=== PATIENT | female | born 1945 | race Caucasian/White ===

== ENCOUNTER → 2019-06-18 08:03 | Outpatient (BNVA) | payer MEDICARE, OTHER, SELFPAY | PROVIDERS: PCP Family Medicine; Visit Provider Specialist | DX: G30.9 Alzheimer's disease, unspecified (principal); F02.80 Dementia in other diseases classified elsewhere, unspecified severity, without behavioral disturbance, psychotic disturbance, mood disturbance, and anxiety | CPT/HCPCS: 96116; 99213 ==

== ENCOUNTER → 2019-12-17 08:01 | Outpatient (BNVA) | payer MEDICARE, OTHER, SELFPAY | PROVIDERS: PCP Family Medicine; Visit Provider Specialist | DX: G30.9 Alzheimer's disease, unspecified (principal); F02.80 Dementia in other diseases classified elsewhere, unspecified severity, without behavioral disturbance, psychotic disturbance, mood disturbance, and anxiety | CPT/HCPCS: 99212 ==

== ENCOUNTER 2020-08-20 10:25 | Observation (INO) | payer MEDICARE, OTHER, SELFPAY ==
[2020-08-20] VITALS (15 sets, daily range): BP systolic 123–181; BP diastolic 60–95; PULSE 58–85; RESP 15–22; TEMP 36.4–37.6; O2SAT 95–100; BMI 20.3
--- NOTE | 2020-08-20 10:29 | XR_ITS ---
WS: [id number] Portable AP upright chest, 08/20/2020 Clinical Data: syncope Comparison: None. Findings: No nodules, masses or effusions are seen. The heart is normal. The pulmonary vascularity is not increased. No pneumonia or pneumothorax is seen. The aortic arch and descending aorta are tortuo us. There are monitor leads on the chest wall. XR/XR chest 1V portable [id number] Impression: Atherosclerosis.
--- NOTE | 2020-08-20 10:29 | ECG_ITS ---
[facility] Test Date: 2020-08-20 Pat Name: Dionna Leon Department: Room: Gender: Female Crosscutter: : 1945 Requested By: aRn Ponce Order Number: [id number] Carlita MD: Rajinder Houston M.D. Measurements Intervals [place] Rate: 63 P: 77 [place]: 245 QRS: 54 QRSD: 105 T: 63 QT: 457 QTc: 469 Interpretive Statements SINUS RHYTHM WITH FIRST DEGREE AV BLOCK POSSIBLE LEFT ATRIAL ENLARGEMENT [-0.1mV P WAVE IN V1/V2] ANTEROSEPTAL MYOCARDIAL INFARCTION , OF INDETERMINATE AGE [40+ ms Q WAVE IN V1-V4] No previous ECG available for comparison Electronically Signed On 08-20-2020 17:13:45 PLANNING INTERN by Rajinder Houston M.D. [email or web address] NetworkInsception Biosciencessouthview medical center.[employer]/store/OM/[id number]
--- NOTE | 2020-08-20 10:30 | W.ED.SYNCOPE ---
HPI - Syncope General: Chief Complaint: Syncope Stated Complaint: SYNCOPAL EPISODE Time Seen by Provider: 08/20/20 10:26 History of Present Illness: HPI narrative: Patient is a 75-year-old female with past medical history dementia who comes to the ER after an episode of syncope. She was with her family eating breakfast and was walking and passed out falling forward. They said her eyes were open and she was out for approximately 3 minutes then she became responsive again. Denies any shaking while she was down or muscle stiffening. In the ED Dionna has no complaints MD complaint: loss of consciousness Injuries sustained associated with event: none Associated symptoms: Reports no associated symptoms; Deny abdominal pain, chest pain or headache(s) Review of Systems General: Reports: 10 or more systems reviewed and unremarkable except in HPI and below Const: Denies: fatigue Eyes: Denies: change in vision, blurry vision or eye redness ENMT: Denies: throat pain, swelling of lips/tongue, ear or mastoid pain or nasal congestion Card: Denies: chest pain, palpitations, irregular heart rhythm, edema, dyspnea on exertion or orthopnea Resp: Denies: dyspnea, productive cough or non-productive cough GI: Denies: abdominal pain, diarrhea or GI cramping : Denies: flank pain, difficulty voiding, urinary frequency or urinary urgency Musc: Denies: neck pain, back pain, extremity pain, joint pain, joint redness, limited range of motion or muscle weakness Skin/Breast: Denies: rash, pruritus, erythema, skin pain or skin tenderness Neuro: Denies: headache(s), numbness in extremities, weakness in extremities, sensory changes, difficulty walking, dizziness, confusion or Slurred speech present Psych: Denies: anxiety or depression Endo: Denies: polyuria All/Imm: Denies: urticaria, throat swelling or tongue swelling PFSH ED PFSH: Family History Sister Hypertension Social History Smoking and tobacco status: never smoked Alcohol intake: never Physical Exam Const: COMMON NORMALS: no acute distress, average body habitus, patient oriented x3, no limitations, healthy appearing, alert and well nourished GENERAL APPEARANCE: cooperative, comfortable, well kempt and well developed ORIENTATION/CONSCIOUSNESS: Yes awake, Yes oriented to person, Yes oriented to place and Yes oriented to time HENMT: COMMON NORMALS: normocephalic, external ears normal and Normal external nose present HEAD & SCALP: normal to inspection and normocephalic NOSE: Normal external nose present EXTERNAL EAR: Yes external ears normal MOUTH: Normal oral and palatal mucosa present THROAT: posterior oropharynx normal Eye: COMMON NORMALS: Equal, round and reactive pupils present and EOMs intact bilaterally GENERAL EYE: appearance normal, both eyes and all related structures PUPIL: Yes Equal, round and reactive pupils present Neck/C-Spine: COMMON NORMALS: full ROM, no lymphadenopathy, no meningeal signs and no JVD GENERAL: Yes normal visual inspection Lymph: LYMPHATIC: no lymphadenopathy noted Chest: COMMONS NORMALS: normal inspection of the chest and normal palpation of entire chest wall Resp: COMMON NORMALS: normal respiratory effort, No retractions, No use of accessory muscles, clear to auscultation bilaterally and percussion normal EFFORT & INSPECTION: Yes able to speak in complete sentences AUSCULTATION: clear to auscultation bilaterally PERCUSSION: percussion normal Cardio: COMMON NORMALS: no JVD, regular rate, regular rhythm, S1 normal heart sound present, S2 normal heart sound present and Peripheral pulses 2+ throughout RATE: regular rate RHYTHM: regular rhythm HEART SOUNDS: S1 normal heart sound present and S2 normal heart sound present PERIPHERAL PULSES: Peripheral pulses 2+ throughout GI: COMMON NORMALS: Normal to inspection, nondistended, normoactive bowel sounds present, Soft to palpation, non-tender and no masses INSPECTION: Yes normal to inspection PALPATION: Yes Soft to palpation : COMMON NORMALS: Yes no CVA tenderness BLADDER/KIDNEY EXAM: Yes no CVA tenderness Back/Pelvis: COMMON NORMALS: no CVA tenderness, thoracic and lumbar spine normal to inspection, no thoracic nor lumbar tenderness and thoraco-lumbar ROM normal Extremity: COMMON NORMALS: normal to inspection, full ROM, capillary refill normal, no joint enlargement and no pedal edema GENERAL: Yes normal exam except as noted Neuro: COMMON NORMALS: patient oriented x3, CN's II-XII intact bilaterally, moves all extremities, no focal motor deficits, no sensory deficits noted and gait normal SENSORIUM/ORIENTATION: Yes alert, Yes oriented to person, Yes oriented to place and Yes oriented to time MENINGEAL SIGNS: Yes no meningeal signs Psych: COMMON NORMALS: mental status grossly normal, Normal thought process present, cooperative, normal affect and speech normal APPEARANCE: Yes well kempt ATTITUDE: Yes calm SPEECH: Yes normal speech THOUGHT PROCESS: Normal thought process present Skin: COMMON NORMALS: no rashes or lesions noted GENERAL SKIN EXAM: no rashes or lesions noted Course Vital Signs: Vital signs: Vital Signs Temperature 97.6 F 08/20/20 10:40 Pulse Rate 72 08/20/20 13:29 Respiratory Rate 19 H 08/20/20 11:46 Blood Pressure 163/82 08/20/20 13:29 Pulse Oximetry 98 08/20/20 13:29 MDM - Syncope MDM Narrative: Medical decision making narrative: The patient came in for an episode of syncope where she was out for 3 minutes. EMS noted V. tach and PVCs during transport but were unable to record these. On arrival she did have PVCs and was feeling much better. She was given IV fluids and monitored as well as imaging and lab studies. They were all normal. Discussed with Dr. Dean who recommended observing overnight to monitor her heart rhythm. Dr. Roberson accepts for observation to U Lab Data: Labs: Lab Results 08/20/20 08/20/20 08/20/20 Range/Units 10:57 10:57 10:57 WBC 6.6 (4.0-10.0) 10^3/ uL RBC 4.44 (4.1-5.3) 10^6/u L Hgb 13.5 (11.5-15.3) g/dL Hct 41.1 (37.0-47.0) % MCV 92.6 (81-99) fL MCH 30.4 (28.0-34.0) pg MCHC 32.8 (30.0-36.0) g/dL RDW 12.1 (12.1-15.1) % Plt Count 317 (130-400) 10^3/c mm MPV 9.1 (7.4-10.4) fL Neut % (Auto) 76.2 % Lymph % (Auto) 14.6 % [place] % (Auto) 7.2 % Eos % (Auto) 0.9 % Baso % (Auto) 0.6 % Neut # (Auto) 5.00 (1.8-7.7) 10^3/u L Lymph # (Auto) 1.0 (0.8-4.8) 10^3/u L [place] # (Auto) 0.5 (0.2-0.9) 10^3/u L Eos # (Auto) 0.1 (0.0-0.8) 10^3/u L Baso # (Auto) 0.0 (0.0-0.1) 10^3/u L Nucleated RBC % (a uto) 0 % Nucleated RBCs # 0.0 /100WBC D-Dimer <= 0.27 (0-0.59) ug/mIFE U Sodium 137 (136-145) mmol/L Potassium 3.5 (3.5-5.1) mmol/L Chloride 100 (98-107) mmol/L Carbon Dioxide 26 (22-29) mmol/L Anion Gap 14.5 (5-19) BUN 8 (8-23) mg/dL Creatinine 0.8 (0.5-0.9) mg/dL GFR Calculation Not Reportable Glucose 97 (65-115) mg/dL Calculated Osmolal ity 282 L (285-295) mOsm/k g Calcium 9.5 (8.5-10.5) mg/dL Total Bilirubin 1.4 H (0.15-1.2) mg/dL AST 20 (0-32) U/L ALT 12 (0-33) U/L Alkaline Phosphata se 45 (35-105) IU/L Troponin T Baselin e (0-10) ng/L Troponin T 120 Min [place] (0-10) ng/L Delta Troponin T (0-10) ABS# NT-Pro-B Natriuret Pep 174 H (0-125) pg/mL Total Protein 6.5 L (6.6-8.7) g/dL Albumin 4.4 (3.5-5.2) g/dL Globulin 2.1 (1.3-4.6) g/dL Urine Color (Yellow) Urine Appearance (CLEAR) Urine pH (5-7) Ur Specific Gravit y (1.005-1.030) Urine Protein (Negative) Urine Glucose (UA) (Normal) Urine Ketones (Negative) Urine Blood (Negative) Urine Nitrate (Negative) Urine Bilirubin (Negative) Prot Sulfosalicyli c Acd (Negative) Urine Urobilinogen (Negative) mg/dL Ur Leukocyte Liza ase (Negative) 08/20/20 08/20/20 08/20/20 Range/Units 10:57 11:44 12:50 WBC (4.0-10.0) 10^3/ uL RBC (4.1-5.3) 10^6/u L Hgb (11.5-15.3) g/dL Hct (37.0-47.0) % MCV (81-99) fL MCH (28.0-34.0) pg MCHC (30.0-36.0) g/dL RDW (12.1-15.1) % Plt Count (130-400) 10^3/c mm MPV (7.4-10.4) fL Neut % (Auto) % Lymph % (Auto) % [place] % (Auto) % Eos % (Auto) % Baso % (Auto) % Neut # (Auto) (1.8-7.7) 10^3/u L Lymph # (Auto) (0.8-4.8) 10^3/u L [place] # (Auto) (0.2-0.9) 10^3/u L Eos # (Auto) (0.0-0.8) 10^3/u L Baso # (Auto) (0.0-0.1) 10^3/u L Nucleated RBC % (a uto) % Nucleated RBCs # /100WBC D-Dimer (0-0.59) ug/mIFE U Sodium (136-145) mmol/L Potassium (3.5-5.1) mmol/L Chloride (98-107) mmol/L Carbon Dioxide (22-29) mmol/L Anion Gap (5-19) BUN (8-23) mg/dL Creatinine (0.5-0.9) mg/dL GFR Calculation Glucose (65-115) mg/dL Calculated Osmolal ity (285-295) mOsm/k g Calcium (8.5-10.5) mg/dL Total Bilirubin (0.15-1.2) mg/dL AST (0-32) U/L ALT (0-33) U/L Alkaline Phosphata se (35-105) IU/L Troponin T Baselin e 8 (0-10) ng/L Troponin T 120 Min [place] 6.00 (0-10) ng/L Delta Troponin T -2.00 L (0-10) ABS# NT-Pro-B Natriuret Pep (0-125) pg/mL Total Protein (6.6-8.7) g/dL Albumin (3.5-5.2) g/dL Globulin (1.3-4.6) g/dL Urine Color Yellow (Yellow) Urine Appearance Clear (CLEAR) Urine pH 8 H (5-7) Ur Specific Gravit y 1.020 (1.005-1.030) Urine Protein Neg (Negative) Urine Glucose (UA) Norm (Normal) Urine Ketones Negative (Negative) Urine Blood Neg (Negative) Urine Nitrate Negative (Negative) Urine Bilirubin Neg (Negative) Prot Sulfosalicyli c Acd Negative (Negative) Urine Urobilinogen Norm (Negative) mg/dL Ur Leukocyte Liza ase Negative (Negative) Discharge Plan Discharge Patient Disposition: Placed in Observation Clinical Impression: Syncope Coding Level of Care Code ED Pharmacy Technician for Vu Fwd Exam Comprehensive
[2020-08-20] MEDS: sodium chloride 0.9% 1,000 ML 999 ML IV (10:56)
[2020-08-20 11:10] LABS: Basophils % 0.6 %; Eosinophils # 0.1 10^3/uL (0.0-0.8); Eosinophils % 0.9 %; Hematocrit 41.1 % (37.0-47.0); Hemoglobin 13.5 g/dL (11.5-15.3); Lymphocytes % 14.6 %; Mean Corpuscular HGB Conc 32.8 g/dL (30.0-36.0); Mean Corpuscular Hemoglobin 30.4 pg (28.0-34.0); Mean Corpuscular Volume 92.6 fL (81-99); Mean Platelet Volume 9.1 fL (7.4-10.4); Monocytes # 0.5 10^3/uL (0.2-0.9); Monocytes % 7.2 %; Neutrophils % 76.2 %; Nucleated Red Blood Cells % 0 %; Platelet Count 317 10^3/cmm (130-400); Red Blood Count 4.44 10^6/uL (4.1-5.3); Red Cell Distribution Width 12.1 % (12.1-15.1); White Blood Count 6.6 10^3/uL (4.0-10.0)
--- NOTE | 2020-08-20 11:17 | CT_ITS ---
WS: [id number] CT HEAD TECHNIQUE: Noncontrast CT of the head obtained from the skullbase to the vertex. CLINICAL INFORMATION: syncope COMPARISON: MRI June 2017 DLP: 771.[address] scans at [facility] use at least one of these dose optimization techniques: automat ed exposure control; mA and/or kV adjustment per patient size (includes targeted exams where dose is matched to clinical indication); or iterative reconstruction. FINDINGS: No evidence of intracranial hemorrhage or mass effect. Ventricular system and basal cisterns are carroll nt. Mild small vessel changes with moderate parenchymal volume loss. No extra-axial fluid collections . No evidence of mass or mass effect. Normal peoples-white differentiation. Paranasal sinuses and mastoid air cells are well aerated. .Normal visualized soft tissues. CT/CT head wo con* [id number] IMPRESSION: 1. No evidence of intracranial hemorrhage or mass effect. 2. Mild small vessel changes. Moderate parenchymal volume loss. 3. No acute intracranial findings.
--- NOTE | 2020-08-20 11:17 | CT_ITS ---
WS: [id number] CT CERVICAL TRAUMA TECHNIQUE: Noncontrast CT of the cervical spine with coronal and sagittal reformatted images. CLINICAL INFORMATION: fall COMPARISON: None. DLP: 288.[address] scans at [facility] use at least one of these dose optimization techniques: automat ed exposure control; mA and/or kV adjustment per patient size (includes targeted exams where dose is matched to clinical indication); or iterative reconstruction. FINDINGS: Straightening of the normal cervical lordosis. Moderate spondylitic changes. Slight anterolisthesis C 4 on C5. Disc space narrowing with disc osteophyte complexes at C5-C6 and C6-C7. Normal craniocervica l junction. Normal C1-C2 articulation. Dens is normal in appearance. Normal occipital condyles. No hi gh-grade spinal canal narrowing. Normal C1 ring. No evidence of acute fracture or dislocation. Normal prevertebral soft tissues. Multinodular thyroid. Mastoids air cells are well aerated. CT/CT cervical spin wo con* 13622 IMPRESSION: 1. No acute cervical spine findings. 2. Multinodular thyroid.
[2020-08-20 11:21] LABS: D Dimer <= 0.27 ug/mIFEU (0-0.59)
[2020-08-20 11:31] LABS: Troponin(5th) Baseline 8 ng/L (0-10)
[2020-08-20 11:35] LABS: Alanine Aminotransferase 12 U/L (0-33); Albumin Level 4.4 g/dL (3.5-5.2); Alkaline Phosphatase 45 IU/L (35-105); Anion Gap 14.5 (5-19); Aspartate Amino Transferase 20 U/L (0-32); Blood Urea Nitrogen 8 mg/dL (8-23); Calcium 9.5 mg/dL (8.5-10.5); Carbon Dioxide 26 mmol/L (22-29); Chloride 100 mmol/L (98-107); Globulin 2.1 g/dL (1.3-4.6); Glucose 97 mg/dL (65-115); NT Pro B Type Natriuretic Pept 174 pg/mL (0-125); Osmolality Calculated 282 mOsm/kg (285-295); Potassium 3.5 mmol/L (3.5-5.1); Sodium 137 mmol/L (136-145); Total Bilirubin 1.4 mg/dL (0.15-1.2); Total Protein 6.5 g/dL (6.6-8.7)
[2020-08-20 11:51] LABS: Add Urine Microscopic? NO
[2020-08-20 11:58] LABS: Bilirubin Urine Neg (Negative); Blood Urine Neg (Negative); Glucose Urine UA Norm (Normal); Ketones Urine Negative (Negative); Leukocyte Esterase Urine Negative (Negative); Nitrate Urine Negative (Negative); Protein Urine Neg (Negative); Sulfosalicylic Acid Urine Negative (Negative); Urine Appearance Clear (CLEAR); Urine Color Yellow (Yellow); Urobilinogen Urine Norm (Negative); pH Urine 8 (5-7)
--- NOTE | 2020-08-20 12:29 | ECG_ITS ---
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 Measurements Intervals [place] Rate: 60 P: 76 [place]: 239 QRS: 64 QRSD: 100 T: 102 QT: 434 QTc: 437 Interpretive Statements SINUS RHYTHM WITH FIRST DEGREE AV BLOCK POSSIBLE LEFT ATRIAL ENLARGEMENT [-0.1mV P WAVE IN V1/V2] ANTEROLATERAL MYOCARDIAL INFARCTION , OF INDETERMINATE AGE [40+ ms Q WAVE IN I/aVL/V3-V6] Compared to ECG 08/20/2020 11:05:53 No significant changes Electronically Signed On 08-20-2020 17:20:25 PACKING INSPECTOR by Rajinder Houston M.D. [email or web address].[employer]/store/OM/[id number]
--- NOTE | 2020-08-20 14:51 | PM.HP ---
Providers/Chief Complaint Admitting Physician: Dnaiel Roberson MD Primary Care Provider: Diane Beaulieu MD Chief Complaint: SYNCOPAL EPISODE History of Present Illness Dionna Leon is a 75 year old female who presents after episode of syncope. This has never happened to her before. She reports she was sitting eating breakfast with her when she told her that she is not feeling well and shortly after slumped forward and her eyes rolled back. Patient reports heart raced a bit faster right before syncopal episode, but denies any preceding headaches or chest pain. She just took several bites of her grilled cheese sandwich before syncopal episode. She was out for 3-4 min and recognized her surroundings when she came back. She was awake when loaded onto ambulance. No fecal or urinary incontinence. I also would like to mention that for the 3-4 minutes she was out she remained in sitting position. Patient's daughter reports that patient's blood pressure is usually 120/90 at home, but measured 180/90 in ER. Apparently in route EMS crew reported frequent PVCs but no strips were available or recorded as per Dr. Garcia. Discussed with patient's and obtained most of the information. Review of Systems General: Reports: 10 or more systems reviewed and unremarkable except in HPI and below Const: Denies: fever(s), chills or body aches Eyes: Denies: change in vision ENMT: Denies: odynophagia Card: Denies: chest pain, swelling of feet/ankles, dyspnea on exertion or orthopnea Resp: Denies: dyspnea GI: Denies: abdominal pain, diarrhea, constipation, change in bowel habits or pain on defecation : Denies: difficulty voiding or dysuria Musc: Denies: muscle weakness Skin/Breast: Denies: rash or pruritus Neuro: Denies: headache(s), numbness in extremities or weakness in extremities Psych: Reports: memory loss and difficulty concentrating; Denies: anxiety or depression Endo: Denies: polyuria or tired all the time Jose/Lymph: Denies: easy bruising or easy bleeding All/Imm: Denies: tongue swelling Medications/Allergies Home Medications Medication Instructions Recorded Confirmed Last Taken Type Aricept 10 mg PO DAILY@06 08/20/20 08/20/20 08/20/20 History Allergies Allergy/AdvReac Type Severity Reaction Status Date / Time Anesthetics - Amide Type - Allergy Unknown Unknown Verified 08/20/20 11:24 Select A PFSH Acute PFSH: Medical History (Updated 08/20/20 @ 16:24 by Daniel Roberson MD) Alzheimer disease Hypothyroid Surgical History History of cataract surgery History of hand surgery Family History Sister Hypertension Father Heart attack Mother Dementia Social History Smoking and tobacco status: never smoked Alcohol intake: never Vitals/I&O/Wt Last Vital Signs Temp 97.6 F 08/20/20 10:40 Pulse 66 08/20/20 14:23 Resp 15 08/20/20 14:23 BP 181/91 08/20/20 14:23 Pulse Ox 100 08/20/20 14:23 08/19/20 08/20/20 08/20/20 22:59 06:59 14:59 Intake Total 1000 / 1000 Balance 1000 / 1000 Weight last 48 hrs Weight 58.967 kg Physical Exam Const: COMMON NORMALS: no acute distress, patient oriented x3 and alert HENMT: COMMON NORMALS: normocephalic and atraumatic HEAD & SCALP: normocephalic and atraumatic Eye: COMMON NORMALS: EOMs intact bilaterally, conjunctivae normal and no scleral icterus CONJUNCTIVA: Yes conjunctivae normal Neck/C-Spine: COMMON NORMALS: no lymphadenopathy and no meningeal signs Lymph: LYMPHATIC: no lymphadenopathy noted Chest: COMMONS NORMALS: normal palpation of entire chest wall Resp: COMMON NORMALS: No use of accessory muscles and clear to auscultation bilaterally AUSCULTATION: clear to auscultation bilaterally Cardio: COMMON NORMALS: regular rate, regular rhythm and No murmurs present (Cardio) RATE: regular rate RHYTHM: regular rhythm OTHER: No lower extremity edema GI: COMMON NORMALS: Soft to palpation and non-tender PALPATION: Yes Soft to palpation RECTAL EXAM: deferred : COMMON NORMALS: Yes no CVA tenderness BLADDER/KIDNEY EXAM: Yes no CVA tenderness Back/Pelvis: COMMON NORMALS: no CVA tenderness and thoracic and lumbar spine normal to inspection Extremity: COMMON NORMALS: normal to inspection and capillary refill normal Neuro: COMMON NORMALS: patient oriented x3 and no focal motor deficits SENSORIUM/ORIENTATION: Yes alert MENINGEAL SIGNS: Yes no meningeal signs Psych: COMMON NORMALS: mental status grossly normal and cooperative APPEARANCE: Yes well kempt SPEECH: Yes normal speech MOOD & AFFECT: Yes euthymic mood THOUGHT PROCESS: Tangential thought process present ATTENTION/CONCENTRATION: Yes attention grossly intact MEMORY/COGNITION: Yes memory grossly impaired Impared memory type(s): short term INSIGHT: Poor insight present (Psych) JUDGEMENT: Poor judgement present (Psych) Skin: COMMON NORMALS: no rashes or lesions noted Data : 08/20/20 10:57 08/20/20 10:57 A&P Assessment and plan (1) Syncope: Cardiac versus orthostatic versus vasovagal. Status: Acute (2) Hypertension: Status: Acute Additional A&P Information PLAN: Etiology of syncope is unknown. Will request orthostatic blood pressure. Will also obtain echocardiogram to evaluate wall motion and ejection fraction. Monitor on telemetry. Start patient on low-dose lisinopril. Check TSH in a.m. Attestations Medical Necessity Statement*: Patient with syncopal episode and concern for cardiac arrhythmia requires observation for monitoring, evaluation and treatment. I expect patient will require less than two midnights. Coding Level of Care Code Acute Reconnaissance Crewmember for [employer] Diagnoses Syncope R55 Hypertension I10
--- NOTE | 2020-08-20 16:29 | ECG_ITS ---
[facility] Test Date: 2020-08-20 Pat Name: Dionna Leon Department: Room: 107 Gender: Female [employer] Hat Open Stack Administrator: : 1945 Requested By: Ran Ponce Order Number: [id number] Carlita MD: Rajinder Houston M.D. Measurements Intervals [place] Rate: 78 P: 75 [place]: 229 QRS: -76 QRSD: 141 T: 90 QT: 412 QTc: 472 Interpretive Statements SINUS RHYTHM WITH FIRST DEGREE AV BLOCK WITH OCCASIONAL SUPRAVENTRICULAR PREMATURE COMPLEXES MARKED LEFT AXIS DEVIATION [QRS AXIS < -30] LEFT BUNDLE BRANCH BLOCK [120+ ms QRS DURATION, 80+ ms Q/S IN V1/V2, 85+ ms R IN I/aVL/V5/V6] Compared to ECG 08/20/2020 12:26:18 Left-axis deviation now present Left bundle-branch block now present Myocardial infarct finding no longer present Electronically Signed On 08-20-2020 17:17:50 CERTIFICATION TECHNICIAN by Rajinder Houston M.D. [email or web address]/store/[id number]
[2020-08-20 17:29] LABS: Troponin 5 6HR 6.54 ng/L (0-10)
[2020-08-20 17:34] LABS: Troponin 5 6HR Delta -1.46 ng/L (0-12)
[2020-08-20 20:11] LABS: Add Urine Microscopic? NO
[2020-08-20 20:31] LABS: Bilirubin Urine Neg (Negative); Blood Urine Neg (Negative); Glucose Urine UA Norm (Normal); Ketones Urine Negative (Negative); Leukocyte Esterase Urine Negative (Negative); Nitrate Urine Negative (Negative); Protein Urine Neg (Negative); Specific Gravity, Urine 1.015 (1.005-1.030); Urine Appearance Clear (CLEAR); Urine Color Yellow (Yellow); Urobilinogen Urine 1 mg/dL (Negative); pH Urine 6.5 (5-7)
--- NOTE | 2020-08-20 20:38 | PC.NURSE ---
Patient is oriented to person and place. Patient has been educated not to get up without assistance. Bed alarm is set.
[2020-08-21] VITALS (7 sets, daily range): BP systolic 145–177; BP diastolic 78–87; PULSE 63–75; RESP 15–25; TEMP 36.4–36.9; O2SAT 93–94
[2020-08-21 04:34] LABS: Basophils # 0.1 10^3/uL (0.0-0.1); Basophils % 0.9 %; Eosinophils # 0.1 10^3/uL (0.0-0.8); Eosinophils % 1.5 %; Hematocrit 40.4 % (37.0-47.0); Lymphocytes # 1.2 10^3/uL (0.8-4.8); Lymphocytes % 20.7 %; Mean Corpuscular HGB Conc 32.2 g/dL (30.0-36.0); Mean Corpuscular Hemoglobin 30.3 pg (28.0-34.0); Mean Corpuscular Volume 94.2 fL (81-99); Monocytes # 0.5 10^3/uL (0.2-0.9); Monocytes % 7.7 %; Neutrophils # 4.06 10^3/uL (1.8-7.7); Nucleated Red Blood Cells % 0 %; Platelet Count 297 10^3/cmm (130-400); Red Blood Count 4.29 10^6/uL (4.1-5.3); Red Cell Distribution Width 12.3 % (12.1-15.1); White Blood Count 5.9 10^3/uL (4.0-10.0)
[2020-08-21 05:05] LABS: NT Pro B Type Natriuretic Pept 195 pg/mL (0-125); Procalcitonin 0.04 ng/mL (0-0.5)
[2020-08-21 05:07] LABS: Alanine Aminotransferase 10 U/L (0-33); Alkaline Phosphatase 41 IU/L (35-105); Anion Gap 12.7 (5-19); Aspartate Amino Transferase 18 U/L (0-32); Blood Urea Nitrogen 11 mg/dL (8-23); Calcium 9.1 mg/dL (8.5-10.5); Carbon Dioxide 27 mmol/L (22-29); Chloride 102 mmol/L (98-107); Globulin 2.3 g/dL (1.3-4.6); Glucose 99 mg/dL (65-115); Osmolality Calculated 285 mOsm/kg (285-295); Potassium 3.7 mmol/L (3.5-5.1); Sodium 138 mmol/L (136-145); Thyroid Stimulating Hormone 6.38 uIU/mL (0.27-4.20); Total Bilirubin 1.3 mg/dL (0.15-1.2); Total Protein 6.3 g/dL (6.6-8.7)
--- NOTE | 2020-08-21 07:00 | USCV_ITS ---
Dionna Leon Age: 75 Gender: F : 1945 Exam Date: 08/21/2020 07:22 Ordering Phys: Daniel Roberson MD Technologist: Prateek Coates Exam Location: [facility] – [place] Indication: TIA BP: 146 / 87 HR: 63 Rhythm: Sinus Technical Quality: Good MEASUREMENTS (Male / Female) Normal Values 2D ECHO LV Diastolic Diameter PLAX 2.9 cm 4.2 - 5.9 / 3.9 - 5.3 cm LV Systolic Diameter PLAX 2.1 cm IVS Diastolic Thickness 1.2 cm 0.6 - 1.0 / 0.6 - 0.9 cm IVS Systolic Thickness 1.4 cm LVPW Diastolic Thickness 1.3 cm 0.6 - 1.0 / 0.6 - 0.9 cm LVPW Systolic Thickness 1.3 cm LVOT Diameter 2.0 cm LV Ejection Fraction 2D Teich 58.3 % LV Ejection Fraction MOD 2C 54.8 % LV Ejection Fraction 2C AL 57.6 % LA Diameter 2.7 cm LA Width 3.3 cm LA Height 3.5 cm RA Width 3.0 cm RA Height 3.9 cm M-MODE LV Diastolic Diameter MM 4.2 cm 4.2 - 5.9 / 3.9 - 5.3 cm LV Systolic Diameter MM 2.7 cm LV Ejection Fraction MM Teich 66.1 % IVS Diastolic Thickness MM 1.1 cm 0.6 - 1.0 / 0.6 - 0.9 cm IVS Systolic Thickness MM 1.6 cm LVPW Diastolic Thickness MM 1.5 cm 0.6 - 1.0 / 0.6 - 0.9 cm LVPW Systolic Thickness MM 1.7 cm RV Diastolic Diameter MM 1.7 cm Aortic Annulus Diameter 3.5 cm LA Ao Ratio MM 0.9 MV E Point Septal Separation 0.4 cm DOPPLER AV Peak Velocity 146.0 cm/s LVOT Peak Velocity 119.0 cm/s AV Area Cont Eq vti 2.9 cm squared AV Area Cont Eq pk 2.7 cm squared MV Area PHT 5.0 cm squared Mitral E to A Ratio 1.0 MV E' Velocity 38.0 cm/s Mitral E to MV E' Ratio 7.7 Mitral E to LV E' Lateral Ratio 9.7 Mitral E to LV E' Septal Ratio 6.4 TR Peak Velocity 144.7 cm/s TR Peak Gradient 8.4 mmHg TV Peak E Velocity 77.0 cm/s Right Atrial Pressure 3.0 mmHg Pulmonary Artery Systolic Pressu 11.4 mmHg PV Peak Velocity 104.0 cm/s FINDINGS Left Ventricle Normal left ventricular size and systolic function, EF 55 %. Mild left ventricular hypertrophy. No regional wall motion abnormalities. Right Ventricle Normal right ventricular size and systolic function. Right Atrium The right atrium is normal in size. Left Atrium The left atrium is normal in size. Mitral Valve Thickened mitral valve. Aortic Valve Thickened aortic valve. Tricuspid Valve Structurally normal tricuspid valve without significant stenosis or regurgitation. Pulmonary artery systolic pressure is normal. Pulmonic Valve Structurally normal pulmonic valve without significant stenosis. There is no pulmonic regurgitation. Pericardium Normal pericardium without effusion. Aorta Normal ascending aorta dimension. CONCLUSIONS Normal left ventricular size and systolic function, EF 55 %. Mild left ventricular hypertrophy. No regional wall motion abnormalities. Minimally thickened aortic and mitral valves. There is no pericardial effusion. There are no intracardiac masses. No previous study is available for comparison. Dr Oswaldo Rodríguez MD FACC (Electronically Signed) Final Date: 21 August 2020 19:40 S
--- NOTE | 2020-08-21 07:54 | P.DS_ITS ---
Discharge Providers Date of Admission: 08/20/20 14:06 Date of Discharge: August 21, 2020 Attending Provider at Admission: Daniel Roberson MD Attending Provider at Discharge: Daniel Roberson MD Primary Care Provider: Diane Beaulieu MD Diagnoses at Discharge Discharge Diagnosis (1) Syncope: Status: Acute (2) Hypertension: Status: Acute Reason for Visit Reason for Visit: SYNCOPAL EPISODE Hospital Course Hospital Course Patient presents with syncopal episode and placed for an observation. This morning patient denies any complaints including shortness of breath or chest pain. Preliminary report of echocardiogram appears to be without any acute findings. Normal wall motion and EF but currently waiting for official report. Patient ambulates without difficulty. Reports that she did not have any more episodes of lightheadedness or dizziness. Patient is being discharged today with event monitor. Discussed with Dr. Rodríguez who will follow up with patient after study completed. She ate last evening without any difficulty. This morning reports being hungry. Blood pressure was high in the 140s therefore small dose lisinopril was initiated. Patient to keep blood pressure and heart rate log to present to primary care physician next visit for medication adjustment. Orthostatic blood pressures were checked and she had no evidence of orthostatic hypotension. Vasovagal etiology cannot be ruled out. Physical Exam Narrative: EXAM NARRATIVE: Lungs are clear and heart is regular. Abdomen is soft and nontender with positive bowel sounds. No lower extremity edema. Discharge Data Data Completed and Pending: Completed Studies During Hospitalization Category Date Time Status CT cervical spin wo con* [id number] Stat Cat Scan 08/20/20 11:[address] head wo con* [id number] Stat Cat Scan 08/20/20 11:17 Completed XR chest 1V billy ble [id number] Stat Exams 08/20/20 10:29 Completed Pending at discharge Category Date Time Status Complete Blood Co unt w/Auto AM LABS Lab 08/22/20 04:00 Ordered Complete Blood Co unt w/Auto AM LABS Lab 08/23/20 04:00 Ordered Comprehensive Met abolic Panel AM LA BS Lab 08/22/20 04:00 Ordered Comprehensive Met abolic Panel AM LA BS Lab 08/23/20 04:00 Ordered CV echo complete* [id number] Routine Ultrasound 08/21/20 07:00 Ordered Labs from last 24 hours 08/21/20 08/21/20 08/21/20 04:20 04:20 04:20 WBC 5.9 RBC 4.29 Hgb 13.0 Hct 40.4 MCV 94.2 MCH 30.3 MCHC 32.2 RDW 12.3 Plt Count 297 MPV 9.0 Neut % (Auto) 69.0 Lymph % (Auto) 20.7 Jasper % (Auto) 7.7 Eos % (Auto) 1.5 Baso % (Auto) 0.9 Neut # (Auto) 4.06 Lymph # (Auto) 1.2 Jasper # (Auto) 0.5 Eos # (Auto) 0.1 Baso # (Auto) 0.1 Nucleated RBC % (a uto) 0 Nucleated RBCs # 0.0 D-Dimer Sodium 138 Potassium 3.7 Chloride 102 Carbon Dioxide 27 Anion Gap 12.7 BUN 11 Creatinine 0.8 GFR Calculation Not Reportable Glucose 99 Calculated Osmolal ity 285 Calcium 9.1 Total Bilirubin 1.3 H AST 18 ALT 10 Alkaline Phosphata se 41 Troponin T Baselin e Troponin T 120 Min seminole Delta Troponin T Troponin T Hi Sens 6Hr Troponin T Hi Sens 6Hr Delta NT-Pro-B Natriuret Pep 195 H Total Protein 6.3 L Albumin 4.0 Globulin 2.3 Procalcitonin 0.04 TSH 6.38 H Urine Color Urine Appearance Urine pH Ur Specific Gravit y Urine Protein Urine Glucose (UA) Urine Ketones Urine Blood Urine Nitrate Urine Bilirubin Prot Sulfosalicyli c Acd Urine Urobilinogen Ur Leukocyte Liza ase 08/20/20 08/20/20 08/20/20 19:45 17:01 12:50 WBC RBC Hgb Hct MCV MCH MCHC RDW Plt Count MPV Neut % (Auto) Lymph % (Auto) Jasper % (Auto) Eos % (Auto) Baso % (Auto) Neut # (Auto) Lymph # (Auto) Jasper # (Auto) Eos # (Auto) Baso # (Auto) Nucleated RBC % (a uto) Nucleated RBCs # D-Dimer Sodium Potassium Chloride Carbon Dioxide Anion Gap BUN Creatinine GFR Calculation Glucose Calculated Osmolal ity Calcium Total Bilirubin AST ALT Alkaline Phosphata se Troponin T Baselin e Troponin T 120 Min seminole 6.00 Delta Troponin T -2.00 L Troponin T Hi Sens 6Hr 6.54 Troponin T Hi Sens 6Hr Delta -1.46 L NT-Pro-B Natriuret Pep Total Protein Albumin Globulin Procalcitonin TSH Urine Color Yellow Urine Appearance Clear Urine pH 6.5 Ur Specific Gravit y 1.015 Urine Protein Neg Urine Glucose (UA) Norm Urine Ketones Negative Urine Blood Neg Urine Nitrate Negative Urine Bilirubin Neg Prot Sulfosalicyli c Acd Urine Urobilinogen 1 H Ur Leukocyte Liza ase Negative 08/20/20 08/20/20 08/20/20 11:44 10:57 10:57 WBC RBC Hgb Hct MCV MCH MCHC RDW Plt Count MPV Neut % (Auto) Lymph % (Auto) Jasper % (Auto) Eos % (Auto) Baso % (Auto) Neut # (Auto) Lymph # (Auto) Jasper # (Auto) Eos # (Auto) Baso # (Auto) Nucleated RBC % (a uto) Nucleated RBCs # D-Dimer Sodium 137 Potassium 3.5 Chloride 100 Carbon Dioxide 26 Anion Gap 14.5 BUN 8 Creatinine 0.8 GFR Calculation Not Reportable Glucose 97 Calculated Osmolal ity 282 L Calcium 9.5 Total Bilirubin 1.4 H AST 20 ALT 12 Alkaline Phosphata se 45 Troponin T Baselin e 8 Troponin T 120 Min seminole Delta Troponin T Troponin T Hi Sens 6Hr Troponin T Hi Sens 6Hr Delta NT-Pro-B Natriuret Pep 174 H Total Protein 6.5 L Albumin 4.4 Globulin 2.1 Procalcitonin TSH Urine Color Yellow Urine Appearance Clear Urine pH 8 H Ur Specific Gravit y 1.020 Urine Protein Neg Urine Glucose (UA) Norm Urine Ketones Negative Urine Blood Neg Urine Nitrate Negative Urine Bilirubin Neg Prot Sulfosalicyli c Acd Negative Urine Urobilinogen Norm Ur Leukocyte Liza ase Negative 08/20/20 08/20/20 10:57 10:57 WBC 6.6 RBC 4.44 Hgb 13.5 Hct 41.1 MCV 92.6 MCH 30.4 MCHC 32.8 RDW 12.1 Plt Count 317 MPV 9.1 Neut % (Auto) 76.2 Lymph % (Auto) 14.6 Jasper % (Auto) 7.2 Eos % (Auto) 0.9 Baso % (Auto) 0.6 Neut # (Auto) 5.00 Lymph # (Auto) 1.0 Jasper # (Auto) 0.5 Eos # (Auto) 0.1 Baso # (Auto) 0.0 Nucleated RBC % (a uto) 0 Nucleated RBCs # 0.0 D-Dimer <= 0.27 Sodium Potassium Chloride Carbon Dioxide Anion Gap BUN Creatinine GFR Calculation Glucose Calculated Osmolal ity Calcium Total Bilirubin AST ALT Alkaline Phosphata se Troponin T Baselin e Troponin T 120 Min seminole Delta Troponin T Troponin T Hi Sens 6Hr Troponin T Hi Sens 6Hr Delta NT-Pro-B Natriuret Pep Total Protein Albumin Globulin Procalcitonin TSH Urine Color Urine Appearance Urine pH Ur Specific Gravit y Urine Protein Urine Glucose (UA) Urine Ketones Urine Blood Urine Nitrate Urine Bilirubin Prot Sulfosalicyli c Acd Urine Urobilinogen Ur Leukocyte Liza ase Vitals: Last Vital Signs Temp 98.4 F 08/21/20 03:33 Pulse 63 08/21/20 05:52 Resp 15 08/21/20 03:33 BP 146/87 08/21/20 04:01 Pulse Ox 93 08/21/20 03:33 Discharge Plan Discharge Patient Disposition: Home Condition: Stable Prescriptions: New lisinopril 2.5 mg Tablet 2.5 mg PO DAILY Qty: 30 RF: 0 Continued Aricept 10 mg tablet 10 mg PO DAILY@06 RF: 0 Discharge Orders: Discharge Order (Routine); Ordered 08/21/20 Ordered By: Daniel Roberson Other Ambulatory Orders: [place] cardiac event monitor (Routine) Timeframe: 1 Day Facility: [facility] - Location: [facility] Ordered By: Daniel Roberson Referrals: Oswaldo Rodríguez MD [Physician] - 1 month Diane Beaulieu MD [Primary Care Provider] - Discharge Diet: Advance as tolerated Discharge Activity: Increase activity as tolerated Activity Restrictions/Additional Instructions: Please call your doctor or present to emergency department if your condition worsens or you develop diarrhea, lightheadedness, fatigue or see blood in your stool or black stool. Please keep blood pressure and heart rate log 3 times daily to present to your doctor next visit for medication adjustment. Discharge Attestations Time Spent in Discharge Care*: greater than 30 min Quality Metrics Clinical Quality Measures During this hospital stay, did patient experience: None
[2020-08-21] MEDS: lisinopril 2.5 mg Tablet PO (08:56)
[2020-08-21] MEDS: pantoprazole DR 40 mg Tablet PO (08:56)
--- NOTE | 2020-08-21 14:07 | PC.NURSE ---
discharge instructions given and explained to pt's spouse.he verb understanding of instructions.discharged via w/c to exit.spouse to drive pt home.
== END 2020-08-21 13:55 | disposition home or self-care (01) ==
LOC: ER 14:07 → CSU 14:14
PROVIDERS: Admitting Provider Internal Medicine; Emergency Provider Family Medicine; PCP Family Medicine; Visit Provider Internal Medicine
DX: R55 Syncope and collapse (principal); I10 Essential (primary) hypertension; E03.9 Hypothyroidism, unspecified; I44.0 Atrioventricular block, first degree; I44.7 Left bundle-branch block, unspecified
CPT/HCPCS: 36415; 70450; 71045; 72125; 80053; 81003; 83880; 84145; 84443; 84484; 85025; 85378; 93005; 93306; 96360; 99285; G0378; J7030

== ENCOUNTER → 2020-12-07 08:12 | Outpatient (BNVA) | payer MEDICARE, OTHER, SELFPAY | PROVIDERS: PCP Family Medicine; Visit Provider Specialist | DX: G30.9 Alzheimer's disease, unspecified (principal); F02.80 Dementia in other diseases classified elsewhere, unspecified severity, without behavioral disturbance, psychotic disturbance, mood disturbance, and anxiety | CPT/HCPCS: 99213; 99214 ==

== ENCOUNTER → 2021-10-06 14:46 | Outpatient (BNVA) | payer MEDICARE, SELFPAY | PROVIDERS: PCP Family Medicine; Visit Provider Family Medicine | DX: Z00.00 Encounter for general adult medical examination without abnormal findings (principal); E03.9 Hypothyroidism, unspecified; I10 Essential (primary) hypertension | CPT/HCPCS: 80053; 80061; 84443; 85025 ==

== ENCOUNTER → 2021-12-22 08:40 | Outpatient (BNVA) | payer MEDICARE, OTHER, SELFPAY | PROVIDERS: PCP Family Medicine; Visit Provider Specialist | DX: G30.9 Alzheimer's disease, unspecified (principal); F02.80 Dementia in other diseases classified elsewhere, unspecified severity, without behavioral disturbance, psychotic disturbance, mood disturbance, and anxiety; F28 Other psychotic disorder not due to a substance or known physiological condition | CPT/HCPCS: 99213; 99214 ==

== ENCOUNTER 2022-06-06 14:34 | Emergency (ER) | payer MEDICARE, OTHER, SELFPAY ==
[2022-06-06 14:34] VITALS: BP 141/112; PULSE 87; RESP 14; O2SAT 97
--- NOTE | 2022-06-06 14:49 | CT_ITS ---
WS: [id number] CT CERVICAL TRAUMA TECHNIQUE: Noncontrast CT of the cervical spine with coronal and sagittal reformatted images. CLINICAL INFORMATION: trauma COMPARISON: August 20, 2020 DLP: 1237.[address] scans at [facility] use at least one of these dose optimization techniques: automated e xposure control; mA and/or kV adjustment per patient size (includes targeted exams where dose is matc hed to clinical indication); or iterative reconstruction. FINDINGS: Straightening of the normal cervical lordosis. Mild cervical curve. Moderate spondylitic changes. Sli ght anterolisthesis C4 on C5. Disc space narrowing worse at C5-C6 and C6-C7. Anterior hypertrophic ch anges. Normal craniocervical junction. Normal C1-C2 articulation. Normal occipital condyles. No high-grade spinal canal narrowing. Normal C1 ring. No evidence of acute fracture or dislocation. Normal prevertebral soft tissues. Fibrosis in the lung apices. Partially visualized nodular thyroid. Mastoids air cells are well aerated. CT/CT cervical spin wo con* [id number] IMPRESSION: No evidence of acute fracture or dislocation.
--- NOTE | 2022-06-06 14:49 | CT_ITS ---
WS: [id number] CT HEAD TECHNIQUE: Noncontrast CT of the head obtained from the skullbase to the vertex. CLINICAL INFORMATION: trauma COMPARISON: August 20, 2020 DLP: 1237.[address] scans at [facility] use at least one of these dose optimization techniques: automated e xposure control; mA and/or kV adjustment per patient size (includes targeted exams where dose is matc hed to clinical indication); or iterative reconstruction. FINDINGS: No evidence of intracranial hemorrhage or mass effect. Ventricular system and basal cisterns are carroll nt. Moderate small vessel changes with moderate parenchymal volume loss. No extra-axial fluid collect ions. Vascular calcification. Paranasal sinuses and mastoid air cells are well aerated. .Normal visualized soft tissues. Normal pos terior nasopharynx. CT/CT head wo con* [id number] IMPRESSION: 1. No evidence of intracranial hemorrhage or mass effect. 2. Moderate small vessel changes. Moderate parenchymal volume loss. 3. No acute intracranial findings.
--- NOTE | 2022-06-06 14:49 | XRR_ITS ---
PROCEDURE INFORMATION: Exam: XR Left Humerus Exam date and time: 06/06/2022 3:23 PM Age: 77 years old Clinical indication: Injury or trauma; Fall; Blunt trauma (contusions or hematomas); Arm, upper; Injury details: Per family she was walking to the bathroom when she fell on her left side. She has an abrasion to her left eyebrow and left cheek, as well as a skin tear to her left forearm. TECHNIQUE: Imaging protocol: Radiologic exam of the Left humerus. Views: 2 or more views. COMPARISON: CT cervical spin wo con* [id number] 06/06/2022 2:59 PM FINDINGS: Bones/joints: Left humerus is intact. Negative for fracture. Soft tissues: Normal. XR/[place] [id number] IMPRESSION: No acute findings.
--- NOTE | 2022-06-06 14:49 | XRR_ITS ---
PROCEDURE INFORMATION: Exam: XR Thoracic Spine Exam date and time: 06/06/2022 3:06 PM Age: 77 years old Clinical indication: Injury or trauma; Fall; Blunt trauma (contusions or hematomas); Injury details: Per family she was walking to the bathroom when she fell on her left side. She has an abrasion to her left eyebrow and left cheek, as well as a skin tear to her left forearm. TECHNIQUE: Imaging protocol: Radiologic exam of the thoracic spine. Views: 3 views. COMPARISON: CT cervical spin wo con* [id number] 06/06/2022 2:59 PM FINDINGS: Bones/joints: No acute fracture. Normal alignment. Soft tissues: Unremarkable. XR/XR thoracic spine 2V [id number] IMPRESSION: No acute findings.
--- NOTE | 2022-06-06 14:49 | XRR_ITS ---
PROCEDURE INFORMATION: Exam: XR Left Hip Exam date and time: 06/06/2022 3:13 PM Age: 77 years old Clinical indication: Injury or trauma; Fall; Blunt trauma (contusions or hematomas); Hip; Injury details: Per family she was walking to the bathroom when she fell on her left side. She has an abrasion to her left eyebrow and left cheek, as well as a skin tear to her left forearm. TECHNIQUE: Imaging protocol: Radiologic exam of the Left hip. Views: 2 or 3 views hip with pelvis when performed. COMPARISON: CR XR lumbar spine 2-3V* [id number] 06/06/2022 3:06 PM FINDINGS: Bones/joints: No acute fracture. Soft tissues: Unremarkable. XR/XR hip LT 2-3V wo/w pel* [id number] IMPRESSION: No acute findings.
--- NOTE | 2022-06-06 14:49 | XRR_ITS ---
PROCEDURE INFORMATION: Exam: XR Left Forearm Exam date and time: 06/06/2022 3:23 PM Age: 77 years old Clinical indication: Injury or trauma; Fall; Blunt trauma (contusions or hematomas); Arm, lower; Injury details: Per family she was walking to the bathroom when she fell on her left side. She has an abrasion to her left eyebrow and left cheek, as well as a skin tear to her left forearm. TECHNIQUE: Imaging protocol: Radiologic exam of the Left forearm. Views: 2 views. COMPARISON: No relevant prior studies available. FINDINGS: Bones/joints: Osseous structures are intact. Negative for fracture. Soft tissues: Normal. XR/XR forearm LT 2V [id number] IMPRESSION: No acute findings.
--- NOTE | 2022-06-06 14:49 | XRR_ITS ---
PROCEDURE INFORMATION: Exam: XR Lumbosacral Spine Exam date and time: 06/06/2022 3:06 PM Age: 77 years old Clinical indication: Injury or trauma; Fall; Blunt trauma (contusions or hematomas); Injury details: Per family she was walking to the bathroom when she fell on her left side. She has an abrasion to her left eyebrow and left cheek, as well as a skin tear to her left forearm. TECHNIQUE: Imaging protocol: Radiologic exam of the lumbosacral spine. Views: 2 or 3 views. COMPARISON: No relevant prior studies available. FINDINGS: Bones/joints: No acute fracture. Grade 1 anterolisthesis of L5 on S1. Soft tissues: Unremarkable. XR/XR lumbar spine 2-3V* [id number] IMPRESSION: No acute findings.
--- NOTE | 2022-06-06 14:55 | ED_ITS ---
HPI - Fall General: Chief Complaint: Fall Stated Complaint: Fall Time Seen by Provider: 06/06/22 14:38 History of Present Illness: Patient is brought in by EMS after a fall at home. Patient has a history of severe dementia and is nonverbal. Per family she was walking to the bathroom when she fell on her left side. She has an abrasion to her left eyebrow and left cheek, as well as a skin tear to her left forearm. Review of Systems General: Reports: ROS unobtainable due to mental status PFS ED PFSH: Medical History Alzheimer disease History of hypertension Hypothyroid Left bundle branch block SVT (supraventricular tachycardia) Syncope Surgical History History of cataract surgery History of hand surgery Family History Sister Hypertension Dementia Father Heart attack CAD (coronary artery disease) Mother Dementia Son Anesthesia complication Family/Other Anesthesia complication Brother CAD (coronary artery disease) Chronic kidney disease (CKD) Dementia Denies family history of Diabetes Clotting disorder Suicide Bleeding disorder Lung disease Cancer Stroke Social History Smoking and tobacco status: never smoked Alcohol intake: never Caregiver/support person: Yes Household members: spouse Marital status: Current occupational status: retired Current gender identity: Female Female Reproductive History: Para: 2 Date of menopause: 06/12/01 Physical Exam Const: COMMON NORMALS: no acute distress and alert HENMT: OTHER: Abrasion to left eyebrow Neck/C-Spine: OTHER: No midline tenderness to palpation of the C-spine Chest: COMMONS NORMALS: normal inspection of the chest and normal palpation of entire chest wall OTHER: No chest wall tenderness to palpation Resp: COMMON NORMALS: normal respiratory effort and No retractions Cardio: COMMON NORMALS: regular rate and regular rhythm RATE: regular rate RHYTHM: regular rhythm GI: COMMON NORMALS: Normal to inspection, nondistended, normoactive bowel sounds present Back/Pelvis: OTHER: No tenderness to palpation of the pelvis Extremity: OTHER: No tenderness palpation of all 4 extremities Neuro: SENSORIUM/ORIENTATION: Yes alert Course Vital Signs: Vital signs: Vital Signs Pulse Rate 87 06/06/22 14:34 Respiratory Rate 14 06/06/22 14:34 Blood Pressure 141/112 06/06/22 14:34 Pulse Oximetry 97 06/06/22 14:34 Oxygen Delivery Me thod 06/06/22 14:34 MDM - Fall Medical Decision Making Patient is brought in by EMS after a fall at home. Patient has a history of severe dementia and is nonverbal. Per family she was walking to the bathroom when she fell on her left side. She has an abrasion to her left eyebrow and left cheek, as well as a skin tear to her left forearm. Will check CAT scan, x- ray, and reassess. On reassessment I talked to the patient's family about the test results. Will discharge home at this time with precautions return for worsening or changing symptoms. Lab Data Radiology Impressions Cervical Spine CT 06/06/22 14:49 IMPRESSION: No evidence of acute fracture or dislocation. Forearm X-Ray 06/06/22 14:49 IMPRESSION: No acute findings. Head CT 06/06/22 14:49 IMPRESSION: 1. No evidence of intracranial hemorrhage or mass effect. 2. Moderate small vessel changes. Moderate parenchymal volume loss. 3. No acute intracranial findings. Hip/Pelvis X-Ray 06/06/22 14:49 IMPRESSION: No acute findings. Humerus X-Ray 06/06/22 14:49 IMPRESSION: No acute findings. Lumbar Spine X-Ray 06/06/22 14:49 IMPRESSION: No acute findings. Thoracic Spine X-Ray 06/06/22 14:49 IMPRESSION: No acute findings. Discharge Plan Discharge Patient Disposition: Home Clinical Impression: Skin tear of forearm without complication Condition: Stable Prescriptions: No Action donepezil 10 mg tablet 10 mg PO DAILY Qty: 90 2RF quetiapine [Seroquel] 25 mg tablet 25 mg PO BID PRN (Reason: anxiety) Qty: 60 5RF Rx Instructions: Take one tablet twice daily as needed levothyroxine 50 mcg capsule 50 mcg PO DAILY Qty: 30 2RF Discharge Orders: Discharge ED (Routine); Ordered 06/06/22 Ordered By: Nahun Hahn Referrals: Diane Beaulieu MD [Primary Care Provider] - Coding Level of Care Code ED Tunnel Mucker for Chg Fwd Exam Detailed
[2022-06-06 17:00] VITALS: BP 132/36; PULSE 98; O2SAT 96
== END 2022-06-06 16:50 | disposition home or self-care (01) ==
PROVIDERS: Emergency Provider Emergency Medicine; PCP Family Medicine
DX: S51.812A Laceration without foreign body of left forearm, initial encounter (principal); S00.212A Abrasion of left eyelid and periocular area, initial encounter; S00.81XA Abrasion of other part of head, initial encounter; W18.30XA Fall on same level, unspecified, initial encounter; G30.9 Alzheimer's disease, unspecified; F02.80 Dementia in other diseases classified elsewhere, unspecified severity, without behavioral disturbance, psychotic disturbance, mood disturbance, and anxiety
CPT/HCPCS: 70450; 72070; 72100; 72125; 73060; 73090; 73502; 99284